=== PATIENT | female | born 1995 ===

== ENCOUNTER 2020-05-06 06:05 | Day surgery (SDC) | payer OTHER ==
[2020-05-06] MEDS ORDERED: PROTONIX20 MG PO (10:34)
== END 2020-05-06 11:40 | disposition home or self-care (01) ==
LOC: AMB-ENDOS 06:05
PROVIDERS: ATTEND Surgery
DX: D13.1 Benign neoplasm of stomach (principal); Z20.828 Contact with and (suspected) exposure to other viral communicable diseases; K44.9 Diaphragmatic hernia without obstruction or gangrene